=== PATIENT | female | born 1960 | race Caucasian/White ===

== ENCOUNTER → 2018-07-16 10:29 | Outpatient (CLI) | payer OTHER, SELFPAY ==
--- NOTE | 2018-07-16 | DI.MRI.S_ITS ---
PROCEDURE: MR CERVICAL SPINE WO CON INDICATIONS: PAIN IN LEFT SHOULDER CERVICALGIA TECHNIQUE: Noncontrast sagittal T1 spin echo and T2 fast spin echo, sagittal STIR, foraminal oblique sagittal T2 fast spin echo, and axial gradient echo or T2 fast spin echo through the cervical spine. COMPARISON: None. FINDINGS: Image quality: Excellent. Alignment and Curvature: There is normal bony alignment. Bone Marrow: Marrow demonstrates normal overall signal. Spinal Cord: Visualized spinal cord has normal size and signal. No cerebellar tonsillar herniation. Paraspinous Soft Tissues: No paravertebral masses. Prevertebral soft tissues are normal in thickness. C2-C3: Normal appearance. C3-C4: Normal appearance. C4-C5: Mild loss of disc height and disc desiccation. There is diffuse posterior disc bulge and uncovertebral hypertrophy. Mild bilateral facet arthropathy. The central canal is mildly narrowed. Mild bilateral foraminal stenosis. C5-C6: Mild loss of disc height and disc desiccation. There is diffuse posterior disc bulge and a disc osteophyte complex. Bilateral uncovertebral hypertrophy. The central canal is moderately narrowed. Moderate bilateral foraminal stenosis. C6-C7: Mild loss of disc height and disc desiccation. There is diffuse posterior disc bulge and a disc osteophyte complex. Bilateral uncovertebral hypertrophy. The central canal is moderately narrowed. Moderate bilateral foraminal stenosis. C7-T1: Normal appearance. IMPRESSION: 1. Multilevel degenerative disc disease and facet arthropathy as described. 2.Central canal stenosis, moderate at C5-C6 and C6-C7, and mild at C4-C5. 3. Multilevel foraminal stenosis as described, moderate at C5-C6 and C6-C7 bilaterally. Dictated by: Jaciel Hilton M.D. on 07/16/2018 at 15:01 Approved by: Jaciel Hilton M.D. on 07/16/2018 at 15:06
--- NOTE | 2018-07-16 | DI.RAD.S_ITS ---
PROCEDURE: FL SHOULDER INJECTION MR/CT LT INDICATIONS: PAIN IN LEFT SHOULDER CERVICALGIA TECHNIQUE: The indications, alternatives, benefits, risks, and complications of the procedure were explained to the patient. Written informed consent was obtained and placed in the chart. The shoulder was examined fluoroscopically and a site for needle placement chosen for entry into the glenohumeral joint from an anterior approach. The skin was prepped and draped in a sterile fashion, and 1% lidocaine infiltrated from skin down to joint capsule. A spinal needle was inserted into the glenohumeral joint, and a small amount of iodinated contrast media injected to confirm intra-articular placement of the needle tip. This was followed by approximately 12 mL dilute solution of a gadolinium containing MR contrast agent. The needle was removed and a dressing was applied. The patient was given postprocedural instructions and sent to the MR suite for MR imaging. FINDINGS: A single fluoroscopic spot image demonstrates intra-articular location of injected iodinated contrast. IMPRESSION: Successful fluoroscopically guided administration of dilute Gadolinium solution into the shoulder joint for MR arthrogram. Dictated by: Vignesh Strickland M.D. on 07/16/2018 at 11:29 Approved by: Vignesh Strickland M.D. on 07/16/2018 at 11:30
--- NOTE | 2018-07-16 | DI.MRI.S_ITS ---
PROCEDURE: MR SHOULDER LT W CON INDICATIONS: PAIN IN LEFT SHOULDER CERVICALGIA TECHNIQUE: After the administration of 12 mL of dilute intra-articular Gadolinium contrast, oblique coronal T1 and T2 spin echo with fat saturation, oblique sagittal T1 spin echo with and without fat saturation, oblique sagittal T2 fast spin echo with fat saturation, axial T1 spin echo with fat saturation through the shoulder. COMPARISON: None. FINDINGS: Image quality: Excellent. Rotator cuff: Supraspinatus tendon is thickened with increased internal signal compatible with severe tendinosis. There is a tight having a, partial, bursal surface tear of the supraspinatus tendon at the mid aspect of the tendon. The infraspinatus and subscapularis tendons are thickened with increased internal signal compatible with mild tendinosis. The infraspinatus, and subscapularis tendons appear intact throughout. Supraspinatus muscle atrophy without fatty infiltration. Bones and bursae: No bone marrow contusions or fractures. Mild acromioclavicular joint osteoarthritic degeneration. The acromion demonstrates conventional anatomy, without an os acromiale. Small amount of fluid noted in the subacromial subdeltoid bursa. Capsule and soft tissues: The labrum and glenohumeral ligaments appear intact. The long head of the biceps tendon demonstrates normal location and morphology. The rotator interval appears normal, without fibrosis. The coracohumeral ligament is of normal thickness. No intra-articular bodies. IMPRESSION: 1. High-grade, partial bursal surface tear of the supraspinatus tendon. 2. Severe supraspinatus tendinosis. Mild infraspinatus and subscapularis tendinosis. 3. Acromioclavicular joint osteoarthritis. 4. Mild subacromial/subdeltoid bursitis. Dictated by: Radha Dickinson MD, PhD on 07/16/2018 at 15:28 Approved by: Radha Dickinson MD, PhD on 07/20/2018 at 15:34
== END ==
PROVIDERS: PCP Family Medicine; Visit Provider Family Medicine
DX: M25.512 Pain in left shoulder (principal); M75.112 Incomplete rotator cuff tear or rupture of left shoulder, not specified as traumatic; M19.012 Primary osteoarthritis, left shoulder; M75.52 Bursitis of left shoulder; M50.321 Other cervical disc degeneration at C4-C5 level; M48.02 Spinal stenosis, cervical region; M47.812 Spondylosis without myelopathy or radiculopathy, cervical region
CPT/HCPCS: 23350; 72141; 73222; 77002

== ENCOUNTER → 2018-09-10 12:42 | Outpatient (CLI) | payer OTHER, SELFPAY ==
[2018-09-10 13:29] LABS: Hematocrit 42.1 % (36-46); Hemoglobin 13.9 g/dL (12.0-16.0); Mean Corpuscular HGB Conc 32.9 % (30-36); Mean Corpuscular Hemoglobin 30.3 PG (26-34); Mean Corpuscular Volume 92.1 fL (80-100); Platelet Count 278 X10^3/uL (150-400); Red Blood Cell Count 4.58 X10^6/uL (4.0-5.2); Red Cell Distribution Width 13.4 % (11.6-14.8); White Blood Cell Count 7.2 X10^3/uL (4.5-11.0)
[2018-09-10 13:43] LABS: BUN Creatinine Ratio 12.9 (6-22); Blood Urea Nitrogen 9 mg/dL (7-17); Calcium 9.2 mg/dL (8.4-10.2); Carbon Dioxide 20 mmol/L (22-32); Chloride 106 mmol/L (98-107); Estimated Glomerular Filt Rate > 60.0 mL/min (>60); Glucose 92 mg/dL (70-100); HEMOLYSIS 52 (0-50); Potassium 4.4 mmol/L (3.4-5.1); Sodium 139 mmol/L (137-145)
[2018-09-10 13:45] LABS: Hemoglobin A1C% w Est Avg Glu 5.8 % (4.0-6.0)
== END ==
PROVIDERS: PCP Family Medicine; Visit Provider Orthopaedic Surgery
DX: Z01.818 Encounter for other preprocedural examination (principal)
CPT/HCPCS: 36415; 80048; 83036; 85027; 93005

== ENCOUNTER 2018-09-24 06:29 | Day surgery (SDC) | payer OTHER, SELFPAY ==
[2018-09-11 13:05] VITALS: BMI 26.6
[2018-09-24] VITALS (16 sets, daily range): BP systolic 122–155; BP diastolic 72–104; PULSE 66–97; RESP 10–16; TEMP 35.9–36.6; O2SAT 94–100; BMI 26.2
--- NOTE | 2018-09-24 | DI.RAD.S_ITS ---
PROCEDURE: XR CERVICAL SPINE 2V OR 3V INDICATIONS: C5-6, C6-7 MOBI C TECHNIQUE: 2 view(s) of the cervical spine were acquired. COMPARISON: MRI CERVICAL spine 07/16/2018. FINDINGS: 2 intraoperative fluoroscopy images demonstrate discectomy and disc prosthesis placement at C5-C6 and C6-C7. There is an endotracheal tube. IMPRESSION: Discectomy and disc prosthesis placement at C5-C6 and C6-C7. Dictated by: Jaciel Hilton M.D. on 09/24/2018 at 9:57 Approved by: Jaciel Hilton M.D. on 09/24/2018 at 9:59
[2018-09-24] MEDS: LACTATED RINGERS 1,000 ML 42 ML IV (07:00)
--- NOTE | 2018-09-24 07:02 | PM.PREOP ---
Pre-operative Note Interval Note History & Physical reviewed/Exam performed by Physician: Yes Changes to H&P: No
[2018-09-24] MEDS: CEFAZOLIN 2 GM/100 ML FROZ.PIGGY IV ×2 (07:45→16:56)
--- NOTE | 2018-09-24 08:16 | SUR.OPER ---
Supine on padded OR bed, head on gel doughnut, arms padded and tucked at side, legs uncrossed, safety belt at thigh, tape over blanket over lower legs .shoulder roll under bilateral scapula
[2018-09-24] MEDS: THROMBIN (RECOMBINANT) 5,000 UNIT VIAL 10000 UNIT TOP (08:28)
[2018-09-24] MEDS: SODIUM CHLORIDE 0.9% 1,000 ML, GENTAMICIN 80 MG IRR (08:29)
[2018-09-24] MEDS: ACETAMINOPHEN IV 1,000 MG/100 ML VIAL 400 MG IV (08:40)
--- NOTE | 2018-09-24 09:13 | PM.OP.1 ---
Operative Date/Time/Diagnoses Date of procedure: 09/24/18 Time of procedure: 09:13 Pre-op diagnosis: cervical disc herniation with radiculopathy Post-op diagnosis: same Procedure & Clinicians Procedure: C56, C67 anterior discectomy and artificial disc replacement use of microscope Same procedure as scheduled: Yes Indications: [age] year old female with intractable pain from cervical disc herniations. They had failed conservative management and requested operative intervention. Risks and benefits of surgery were discussed and appropriate consents were obtained. Surgeon: Dwayne Kurtz Charge Manager: Audrey Madison Anesthesia Type: General Operative Notes Findings: None Closure Type: primary Specimen(s): none sent Prosthetic devices, grafts, tissues, transplants, or devices: Deidre Mobi-C [id number] disc replacements Estimated Blood Loss (mL): 5 Blood products transfused: none Procedure in detail: Patient was brought to the operating room and intubated on the table. A time-out was performed. Preoperative antibiotics were given. The neck was prepped and draped in the standard sterile fashion. Using a skin fold, we made a 3 cm oblique incision on the left side. We used Bovie to go through the platysma and then did a standard anterolateral blunt dissection down to the precervical fascia. Fascia was nicked and elevated up. A marker was placed and x-ray was taken for localization. We then subperiosteally elevated up the longus colli muscles. Self-retaining retractors were placed. [place] pins were placed under x-ray guidance to be parallel to the endplates. We then brought in the microscope. A scalpel used to perform an annulotomy. We then used a combination of pituitaries and curettes and Kerrison to perform a complete anterior diskectomy at C6-7. We took down the PLL and used Kerrison to remove any posterior disc material and osteophytes. At the end we could from the nerve hook cephalad caudally and out the foramen and everything was opened. We distracted open with the parallel hooker machine tender. We then used the horseshoes for sizing. We then used the trials. We then inserted a 15 x 15 x 6mm size Mobi-C artificial disc replacement under fluoroscopic guidance for positioning. The traction was released and x-ray was checked again. We then moved our retractors up to the C5-6 level. again we used a scalpel for an annulotomy and the pituitaries and curettes and Kerrisons to perform a complete anterior diskectomy at C5-6. We took down the PLL and removed the posterior disc osteophyte material. At the end a nerve hook was run cephalad caudally out the foramen everything was open. We distracted open with a parallel distractor. We trialed and placed another 15 x 15 x 6 mm artificial disc replacement under fluoroscopy. The traction was released and the x-rays were checked again. The self-retaining retractors and [place] pins were removed and final x-rays taken. The wound was irrigated. There was no bleeding. The carotid was beating nicely. The platysma was closed. The superficial was closed. The skin was closed. A sterile dressing was placed. They were then extubated and brought to recovery room with no complications. Complications: none Condition: stable Disposition: PACU Plan for aftercare: Overnight admission. Soft collar for comfort
--- NOTE | 2018-09-24 09:18 | P.OP_ITS ---
Operative Date/Time/Diagnoses Date of procedure: 09/24/18 Time of procedure: 09:13 Pre-op diagnosis: cervical disc herniation with radiculopathy Post-op diagnosis: same Procedure & Clinicians Procedure: C56, C67 anterior discectomy and artificial disc replacement use of microscope Same procedure as scheduled: Yes Indications: [age] year old female with intractable pain from cervical disc herniations. They had failed conservative management and requested operative intervention. Risks and benefits of surgery were discussed and appr opriate consents were obtained. Surgeon: Dwayne Kurtz Feller Seam Operator: Audrey Madison Anesthesia Type: General Operative Notes Findings: None Closure Type: primary Specimen(s): none sent Prosthetic devices, grafts, tissues, transplants, or devices: Deidre Mobi-C [id number] disc replacements Estimated Blood Loss (mL): 5 Blood products transfused: none Procedure in detail: Patient was brought to the operating room and intubated on the table. A time-out was performed. Preoperative antibiotics were given. The neck was prepped and draped in the standard sterile fashion. Using a skin fold, we made a 3 cm oblique incision on the left side. We used Bovie to go through the platysma and then did a standard anterolateral blunt dissection down to the precervical fascia. Fascia was nicked and elevated up. A marker was placed and x-ray was taken for localization. We then subperiosteally elevated up the longus colli muscles. Self-retaining retractors were placed. [place] pins were placed under x-ray guidance to be parallel to the endplates. We then brought in the microscope. A scalpel used to perform an annulotomy. We then used a combination of pituitaries and curettes and Kerrison to perform a complete anterior diskectomy at C6-7. We took down the PLL and used Kerrison to remove any posterior disc material and osteophytes. At the end we could from the nerve hook cephalad caudally and out the foramen and everything was opened. We distracted open with the parallel material requisitioner. We then used the horseshoes for sizing. We then used the trials. We then inserted a 15 x 15 x 6mm size Mobi-C artificial disc replacement under fluoroscopic guidance for positioning. The traction was released and x-ray was checked again. We then moved our retractors up to the C5-6 level. again we used a scalpel for an annulotomy and the pituitaries and curettes and Kerrisons to perform a complete anterior diskectomy at C5-6. We took down the PLL and removed the posterior disc osteophyte material. At the end a nerve hook was run cephalad caudally out the foramen everything was open. We distracted open with a parallel distractor. We trialed and placed another 15 x 15 x 6 mm artificial disc replacement under fluoroscopy. The traction was released and the x-rays were checked again. The self-retaining retractors and [place] pins were removed and final x-rays taken. The wound was irrigated. There was no bleeding. The carotid was beating nicely. The platysma was closed. The superficial was closed. The skin was closed. A sterile dressing was placed. They were then extubated and brought to recovery room with no complications. Complications: none Condition: stable Disposition: PACU Plan for aftercare: Overnight admission. Soft collar for comfort
[2018-09-24] MEDS: hydrOXYzine 50 MG/ML INJ 25 MG IM (09:42)
[2018-09-24] MEDS: fentaNYL 100 MCG/2 ML INJ 50 MCG IV ×2 (09:51→10:03)
[2018-09-24] MEDS: LORazepam 2 MG/ML INJ 0.25 MG IV (10:10)
--- NOTE | 2018-09-24 10:22 | SUR.PHASEI ---
REPORT CALLED TO KENTRELL SUAREZ ON ACUTE CARE, PT DOZING QUIETLY, MEDICATED FOR C/O BACK OF NECK TIGHTNESS, REPOSITIONED, ICE PACK TO BACK OF NECK FOR COMFORT AND MEDICATED. IV PATENT AND INFUSING.
--- NOTE | 2018-09-24 10:56 | SUR.PHASEI ---
PT TRANSFERRED TO ACUTE CARE, HAND OFF OF CARE TO KENTRELL SUAREZ
[2018-09-24] MEDS: LACTATED RINGERS 1,000 ML 125 ML IV ×2 (11:45→19:54)
[2018-09-24] MEDS: ONDANSETRON 4 MG/2 ML INJ IV ×2 (12:17→18:49)
[2018-09-24] MEDS: HYDROMORPHONE 1 MG INJ 0.5 MG IV (12:17)
[2018-09-24] MEDS: OXYCODONE IR 5 MG TABLET PO (13:50)
--- NOTE | 2018-09-24 14:27 | CM.DANOTE ---
DCP: Case received, EMR reviewed and met with patient. Introduced self and role. Was able to meet with patient in her room and obtain information to complete discharge planning assessment. Patient is a 58 year old female who admitted yesterday to the care of the surgical team. PCP: Dr. Sheehan. Payer: confirmed: Ian Rolon. Patient came to hospital for surgical procedure. She had C-5, C-6 anterior cervical surgery. Patient has history of cervical disc herniation. Met briefly with patient in her room. Alert and oriented, pleasant. She was sitting up in her bed with cervical collar on. 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 She is independent. Asked her if she had support at home to help her out when she goes home, and she confirmed that her mother and are there to help her out. P: DCP to continue to follow closely. Plan is for her to go home. She stated that she could be discharged tomorrow. No barriers noted. Vaishali Solomon RN/Gravity Prospecting Operator
--- NOTE | 2018-09-24 14:50 | PT.IIE ---
Current Diagnoses Spinal stenosis, cervical region (09/24/18) Other cervical disc displacement, unspecified cervical region (09/24/18) Surgery Performed Operation Date: 09/24/18 07:45 Actual Procedures p C5-6, C6-7 Anterior discectomy w/Artificial disc replacement - Dwayne Kurtz MD Surgical History (Last Updated 09/11/18 @ 13:11 by Lucia Medina RN) H/O repair of rotator cuff (Acute) Hx of appendectomy (Acute) Medical History (Last Updated 09/11/18 @ 13:11 by Lucia Medina RN) Arthritis (Acute) Chronic neck pain (Acute) Diabetes mellitus, type 2 (Acute) Foot fracture, left (Acute) HLD (hyperlipidemia) (Acute) Migraines (Acute) Numbness and tingling in left arm (Acute) Psoriasis (Acute) Seizure disorder (Acute) Physical Therapy Inpatient Evaluation/Re-Eval M1 PT/OT-IP Prior Functional Status Start: 09/24/18 13:44 Freq: NEEDED Status: Active Protocol: Document 09/24/18 14:50 DLM (Rec: 09/24/18 15:14 DL [id number]) Medical Review Prior Functional Status Medical History Reviewed Yes Diet/Fluid Consistency Regular Communication WNL Mobility and Gait Independent without device, active in community Activities of Daily Living and IADL's Independent, takes care of chickens Social History Household Members spouse children Living Arrangements House Number of Floors (Floors) Two Floors Number of Stairs To Enter/Railing? 0 Additional Social History Comment master bedroom is on main level M2 PT-IP Current Condition Start: 09/24/18 13:44 Freq: NEEDED Status: Active Protocol: Document 09/24/18 14:50 DLM (Rec: 09/24/18 15:14 DLM [id number]) Physical Therapy Current Condition Current Condition Evaluation Date 09/24/18 Treatment Diagnosis C5-7 discectomy and artificial disc replacement Onset Date 09/24/18 Precautions Cervical Spine Precautions Soft Collar for Comfort No Heavy Lifting Log Roll M3 PT-IP Subjective Start: 09/24/18 13:44 Freq: NEEDED Status: Active Protocol: Document 09/24/18 14:50 DLM (Rec: 09/24/18 15:14 DLM [id number]) Subjective Physical Therapy Visit Type Type Initial Evaluation Visit Start Time 14:20 Visit Stop Time 14:50 Total Visit Minutes 30 Number of BOX TOE CEMENTER Visits 0 Physical Therapy Visit Comments Patient Comments her pain is the worst in left shoulder blade area Patient Goals discharge home with her Spouse to help Therapy Pain Assessment Pain When Pain Assessed During Mobility Pain Present Pain Present Pain Reported Location l arm Intensity 8 Scale Used Numeric (1 - 10) Description Aching Stabbing Tightness Pain Behaviors Guarding Wincing Pain Management Techniques Apply Cold Re-positioning M4 PT-IP Mobility and Gait Start: 09/24/18 13:44 Freq: NEEDED Status: Active Protocol: Document 09/24/18 14:50 DL (Rec: 09/24/18 15:14 DL [id number]) PT-Bed Mobility Assessment Rolling Type of Rolling Log Rolling Bilateral Level of Assist Standby Assistance Supine to Sit Supine to Sit Standby Assistance Sit to Supine Sit to Supine Standby Assistance Scooting Scooting to Edge of Bed Independent PT-Transfer Assessment Sit to and From Stand Sit to and from Stand Independent Equipment Transfer Assistive Device None Transfers Transfer Destination Toilet Transfer Technique Stand Step Pivot Transfer Ability Level of Assist Standby Assistance Comments Mobility Comments assisted her with IV pole Gait Assessment Gait Gait Assistance Required: Standby Assistance Distance (Feet) 300 Assistive Devices Assistive Device None Factors Limiting Gait Function Factors Limiting Gait Function Pain Comments Gait Comments good balance observed, she describes mild dizziness that she believes is related to pain medication, normal pace of gait, soft cervical collar in place and tolerating well PT-Balance Assessment Sitting Balance and Reactions Static Sitting Balance Ability Good Dynamic Sitting Balance Ability Good Standing Balance and Reactions Static Standing Balance Ability Good Dynamic Standing Balance Ability Good M5 PT-IP Objective Assessments Start: 09/24/18 13:44 Freq: NEEDED Status: Active Protocol: Document 09/24/18 14:50 DL (Rec: 09/24/18 15:14 [facility] [id number]) Orientation Orientation/Cognition Level of Alertness Alert Orientation Name Age Birthday Month Date Year Day of Week Place Situation Language Function Ability No Deficits Noted Safety Awareness Understands Safety Issues Memory Description No Deficits Noted Gross Range of Motion Upper Extremity ROM Assessment Within Functional Limits Lower Extremity ROM Assessment Within Functional Limits Strength Upper Extremity Strength Assessment Within Functional Limits Lower Extremity Strength Assessment Within Functional Limits Comments Strength Comments cervical ROM and strength impaired post-op with pain, soft cervical collar in use, pt using UE's functionally but did not do maximal strength testing due to her current pain level Coordination Assessment Gross Coordination Gross Coordination WNL Sensation Assessment Sensation Gross Sensation Left UE Impaired Comments Sensation Comments she reports her left UE feels better than before surgery, still a little numbness/ tingling Muscle Tone Muscle Tone WNL Yes Comments Muscle Tone Comments muscle spasm left upper trap and rhomboid area M6 PT-IP Treatment Start: 09/24/18 13:44 Freq: NEEDED Status: Active Protocol: Document 09/24/18 14:50 DLM (Rec: 09/24/18 15:14 DLM [id number]) Physical Therapy Treatment Exercises Exercises Ankle Pumps Education Education Provided Precautions Safety M7 PT-IP Assessment and Plan Start: 09/24/18 13:44 Freq: NEEDED Status: Active Protocol: Document 09/24/18 14:50 DLM (Rec: 09/24/18 15:14 DLM [id number]) PT Summary Assessment and Plan Potential Rehabilitation Potential Good Status of Condition at Evaluation Evolving Summary Impairments Pain ROM Strength Assessment Summary Jazmyn is alert and tolerated mobility/gait well over-all. She describes having mild dizziness when ambulating. She demonstrates good balance. She needs verbal cues for spine precautions post-op. No further physical therapy needs at this time. Will defer further post-op education/training to Occupational Therapy. Pt appears to be safe to discharge home when medically stable. Frequency of Treatment Frequency Of Treatment Discharge Recommendations To Nursing Amount of Assist Needed Standby Assistance Discharge Recommendations PT Discharge Recommendations Home with Assistance
[2018-09-24] MEDS: hydrOXYzine pamoate 25 MG CAPSULE PO (16:56)
[2018-09-24] MEDS: METOCLOPRAMIDE 10 MG/2 ML INJ IV (17:01)
[2018-09-24] MEDS: MAXALT MLT 10 MG 10 EACH PO (18:45)
--- NOTE | 2018-09-24 19:19 | PC.NURSE ---
Addendum entered by Ninfa Abdi R.N. 09/24/18 22:53: Pt resting quietly in bed on right side with soft collar in place. No signs of distress or discomfort. Addendum entered by Ninfa Abdi R.N. 09/24/18 20:06: Refuses to wear BL scd's. Encouraged ankle waving and calf pumping. Up to commode and back to bed without emesis. Offered iv pain meds and pt declines at this time. Spouse present, attentive, and involved in pt's care. Original Note: Pt states onset nausea with movement in bed to sitting upright position for evening meal. Administered reglan as ordered to treat with resolution. C/o migraine headache pain and requests own med. Not available in pharmacy. Call to Dr. Kurtz to discuss and order received for pt to take own med. This was provided by pt's spouse upon spouse's visit and ID'd by pharmacist. Given to patient. Ice to posterior neck and left posterior shoulder. Soft collar in place. Tegaderm with gauze dry and intact to anterior neck. Pt reports baseline numbness to left first and second finger improved s/p surgery. Up to bathroom to void with standby assistance. Brushed teeth at sink and reports feeling quite well upon return to bed. Spontaneous large liquid emesis x 2 which pt associates with movement. Zofran administered. Provided ice chips to proceed slowly. Denies need for pain meds at this time.
[2018-09-24] MEDS: SCOPOLAMINE 1 PATCH TOP (20:59)
[2018-09-24] MEDS: LORazepam 2 MG/ML INJ 0.5 MG IV (21:21)
[2018-09-25] VITALS: BP 143/83; PULSE 72; RESP 18; TEMP 36.8; O2SAT 99
[2018-09-25] MEDS: CEFAZOLIN 2 GM/100 ML FROZ.PIGGY IV (00:29)
[2018-09-25] MEDS: METOCLOPRAMIDE 10 MG/2 ML INJ IV (00:31)
[2018-09-25] MEDS: HYDROMORPHONE 1 MG INJ 0.5 MG IV (00:39)
[2018-09-25 04:00] VITALS: BP 125/74; PULSE 75; RESP 18; TEMP 36.6; O2SAT 95
[2018-09-25] MEDS: LACTATED RINGERS 1,000 ML 125 ML IV (04:04)
--- NOTE | 2018-09-25 06:59 | PM.PNPO.1 ---
Subjective Date Patient Seen: 09/25/18 Time Patient Seen: 06:59 Interval history: She had severe headaches and nausea last night. These are much better this morning. She has been out of bed and going to the bathroom independently. The tingling in her left hand is getting better. Exam Vital Signs (past 8 hours): - 09/25/18 00:00 09/25/18 04:00 Temperature 98.2 F 97.9 F Pulse Rate 72 75 Respiratory Rate 18 18 Blood Pressure 143/83 H 125/74 Pulse Oximetry 99 95 Oxygen Delivery Method Room Air Oxygen Flow Rate 0 Const Orientation: alert and oriented x3 Back/Spine/Pelvis Other: CDI. 5/5 motor both upper extremities. Assessment & Plan Post-op Postoperative Procedures Operation Date: 09/24/18 07:45 Actual Procedures Side Surgeon p C5-6, C6-7 Anterior discectomy w/Artificial disc replacement Dwayne Kurtz MD She had a rough night but seems to be recovering at this point. plan for discharge home today.
[2018-09-25 07:54] VITALS: BP 130/79; PULSE 78; RESP 16; TEMP 36.6; O2SAT 99
[2018-09-25] MEDS: METFORMIN HCL 500 MG TABLET PO (08:11)
[2018-09-25] MEDS: NAPROXEN 250 MG TABLET 500 MG PO (08:11)
[2018-09-25] MEDS: DOCUSATE 100 MG CAPSULE PO (08:11)
[2018-09-25] MEDS: TOPIRAMATE 100 MG TABLET PO (08:11)
[2018-09-25] MEDS: ATORVASTATIN 20 MG TABLET 40 MG PO (08:11)
--- NOTE | 2018-09-25 09:18 | OT.IP.TRT ---
Current Diagnoses Spinal stenosis, cervical region (09/24/18) Other cervical disc displacement, unspecified cervical region (09/24/18) Surgery Performed Operation Date: 09/24/18 07:45 Actual Procedures p C5-6, C6-7 Anterior discectomy w/Artificial disc replacement - Dwayne Kurtz MD Occupational Therapy Treatment Note M3 OT- IP Subjective and Pain Start: 09/25/18 09:14 Freq: Status: Active Protocol: Document 09/25/18 09:14 [facility] (Rec: 09/25/18 09:18 [facility] [id number]) OT- Subjective Occupational Therapy Visit Type Type Treatment Note Visit Start Time 09:05 Visit Stop Time 09:15 Total Visit Minutes 10 Occupational Therapy Visit Comments Patient Comments Pt states wanting to wait to go home until she showers and for to come in order to get dressed. Pt agreeable to get up and go over soft collar management needs. OT Pain Assessment Pain When Pain Assessed At Rest Pain Present Pain Present Denied Pain M4 OT- IP ADL's Start: 09/25/18 09:14 Freq: Status: Active Protocol: Document 09/25/18 09:14 [facility] (Rec: 09/25/18 09:18 [facility] [id number]) OT [id number] Comments OT Self-Feeding Comments Re-emphasized pt to eat softer food initially, sit upright, and chew food thoroughly. OT ADL-Grooming Comments OT Grooming Comments After education, pt able to independently julio/doff soft collar, informational sheet given. M9 OT- IP Assessment and Plan Start: 09/25/18 09:14 Freq: Status: Active Protocol: Document 09/25/18 09:14 [facility] (Rec: 09/25/18 09:18 [facility] [id number]) OT Summary Assessment and Plan Potential Rehabilitation Potential Good Analytic Complexity at Evaluation Low Summary OT Impairments Pain Progress Towards Goals Safe For Discharge Assessment Summary Pt low complexity and already able to mobilize in the room of her own, family to be home to assist pt for all her needs . Pt has good understanding and safety for all OT needs. Goals Patient/Caregiver Education Goal Demonstrate Post-Op Precautions Days to Meet Goals 1 Frequency of Treatment Frequency Of Treatment Once a Day Treatment Plan OT Treatment Plan Discharge Planning Discharge Recommendations OT Discharge Recommendations Home with Assistance
--- NOTE | 2018-09-25 10:01 | PC.NURSE ---
Pt ready for discharge home with Spouse who is at the bedside. Went over d/c instructions with both-discussed d/c meds, time of last dose, reviewed stroke education, s/s of infection, no driving while on narcotics, follow up, and lifting precautions. Pt now dressing and both deny further questions. Pt will be taken out via w/c by DAYCARE MANAGER to POV with Spouse and all belongings.
== END 2018-09-25 10:13 | disposition home or self-care (01) ==
LOC: OR 06:31 → AC 06:47
PROVIDERS: PCP Family Medicine; Visit Provider Orthopaedic Surgery
PROC: (CPT 22856; principal; 2018-09-24 07:45)
DX: M50.122 Cervical disc disorder at C5-C6 level with radiculopathy (principal); M48.02 Spinal stenosis, cervical region; G40.909 Epilepsy, unspecified, not intractable, without status epilepticus; E11.9 Type 2 diabetes mellitus without complications; Z79.84 Long term (current) use of oral hypoglycemic drugs
CPT/HCPCS: 22856; 22858; 72040; 76000; 82962; 97162; 97535; C1776; J0131; J0690; J1100; J1170; J2060; J2250; J2405; J2704; J2765; J3010; J3410